=== PATIENT | female | born 1955 | race Caucasian/White ===

== ENCOUNTER 2017-02-05 11:21 | Emergency (ER) | payer MEDICARE ==
[2017-02-05] MEDS ORDERED: PROPOFOL 100 ML IV ONE ×2 (11:41→16:26)
[2017-02-05] MEDS ORDERED: ETOMIDATE INJ/PF 20 MG/10 ML SDV IV ONE (12:02)
--- NOTE | 2017-02-05 12:10 | ER Document Report ---
ED General - General Stated Complaint: SYNCOPE/SEIZURE Time Seen by Provider: 02/05/17 11:45 Notes: Patient is a 63-year-old female who was witnessed to have a seizure this morning. She was standing in the bathroom after taking a shower and suddenly seized and fell backward, hitting her head in the fall. Her witnessed the seizure and fall and called EMS. EMS arrived at the scene and said the patient had another seizure while they were present and then she had several more seizures in route to the hospital. Patient is visiting from out of town, here to go fishing and visit family. 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 She has undergone 30 radiation treatments and now is on chemo alone. Her primary treating physician for the cancer is at [place] and she had studies there including CT scan 2 weeks ago. It did not show any improvement in the brain metastases. However, patient has never had previous seizures. In route here, patient received 8 mg of Versed IV and 5 mg of Valium twice IV. Upon arrival, patient respirations are being assisted with an Ambu bag. - Related Data Allergies/Adverse Reactions: Penicillins Allergy (Verified 02/05/17 13:52) Past Medical History - Social History Smoking Status: Current Every Day Smoker Family History: Reviewed & Not Pertinent - Past Medical History Cardiac Medical History: Reports: Hx Hypertension, Other Pulmonary Medical History: Reports: Hx COPD Neurological Medical History: Denies: Hx Cerebrovascular Accident, Hx Seizures Endocrine Medical History: Denies: Hx Diabetes Mellitus Type 1, Hx Diabetes Mellitus Type 2 Malignancy Medical History: Reports: Hx Lung Cancer - With metastases. Review of Systems - Review of Systems -: Yes ROS unobtainable due to patient's medical condition - Patient unable to answer any questions. Intubated. No relatives here now. Physical Exam - Vital signs Vitals: Pulse Resp BP Pulse Ox 117 H 19 71/61 L 100 02/05/17 11:25 02/05/17 11:25 02/05/17 11:25 02/05/17 11:25 Interpretation: Hypotensive, Tachycardic - Notes Notes: PHYSICAL EXAMINATION: GENERAL: Very thin, frail, small patient, estimated weight about 40 kg. HEAD: Atraumatic, normocephalic. ENT: Moist mucous membranes. NECK: Normal range of motion, supple. LUNGS: Breath sounds clear and equal bilaterally. Decreased bilaterally. HEART: Regular rate and rhythm without murmurs. Slightly tachycardic. Scar from apparent CABG. ABDOMEN: Soft, nontender. No guarding or rebound. BACK: No tenderness throughout entire back. EXTREMITIES: Normal range of motion without pain. Scars from apparent graft donor site of the right thigh. NEUROLOGICAL: Unresponsive and respirations being assisted by Ambu bag by EMS. PSYCH: Unable to assess. SKIN: Warm, dry, no rashes. Course - Re-evaluation Re-evalutation: 02/05/17 15:46 Spoke with after his arrival here and he filled me in on the history that I did not have. Spoke with [place] transfer line and they put me in contact with Dr. Gilmore, who will accept the patient in transfer there. Bed assignment being awaited. Patient was given 4 mg of Decadron IV. She was also started on 1000 mg of Keppra IV for seizure prophylaxis. - Vital Signs Vital signs: Temp Pulse Resp BP Pulse Ox 98.7 F 117 H 13 117/89 H 100 02/05/17 15:33 02/05/17 11:25 02/05/17 15:33 02/05/17 15:33 02/05/17 15:33 - Laboratory Result Diagrams: 02/05/17 12:15 02/05/17 12:15 Laboratory results interpreted by me: 02/05/17 02/05/17 02/05/17 11:30 12:15 12:15 WBC 11.2 H RDW 18.3 H Carbonic Acid 1.78 H ABG pH 7.23 L ABG pCO2 59.3 H ABG pO2 281.4 H ABG Total CO2 26.3 H ABG O2 Saturation 99.5 H Potassium 5.1 H Direct Bilirubin 0.6 H Creatine Kinase 151 H Critical Care Note - Critical Care Note Total time excluding time spent on procedures (mins): 70 Discharge - Discharge Clinical Impression: Seizure, Metastatic cancer to lung Condition: Serious Disposition: [facility]
--- NOTE | 2017-02-05 12:29 | RADIOLOGY REPORT (SQ) ---
EXAM DESCRIPTION: CHEST SINGLE VIEW COMPLETED DATE/TIME: 02/05/2017 12:18 pm REASON FOR STUDY: STROKE ALERT/ET PLACEMENT COMPARISON: 02/05/2017 EXAM PARAMETERS: NUMBER OF VIEWS: One view. TECHNIQUE: Single frontal radiographic view of the chest acquired. RADIATION DOSE: NA LIMITATIONS: None. FINDINGS: LUNGS AND PLEURA: The lungs are hyperexpanded. Chronic interstitial changes seen. The le ft hemidiaphragm is mildly elevated. MEDIASTINUM AND HILAR STRUCTURES: No masses. Contour normal. HEART AND VASCULAR STRUCTURES: Heart normal in size. Normal vasculature. BONES: No acute findings. HARDWARE: An endotracheal tube is present with the tip just above the anayeli. Sternotomy wires. Gra ft markers. Upper mediastinal stents. OTHER: No other significant finding. IMPRESSION: An endotracheal tube is present with the tip just above the anayeli. TECHNICAL DOCUMENTATION: JOB ID: [id number]
--- NOTE | 2017-02-05 12:30 | RADIOLOGY REPORT (SQ) ---
EXAM DESCRIPTION: CHEST SINGLE VIEW COMPLETED DATE/TIME: 02/05/2017 12:18 pm REASON FOR STUDY: bed t1 stroke alert COMPARISON: None. EXAM PARAMETERS: NUMBER OF VIEWS: One view. TECHNIQUE: Single frontal radiographic view of the chest acquired. RADIATION DOSE: NA LIMITATIONS: None. FINDINGS: LUNGS AND PLEURA: Chronic changes are present. No localized infiltrate is seen MEDIASTINUM AND HILAR STRUCTURES: No masses. Contour normal. HEART AND VASCULAR STRUCTURES: Heart normal in size. Normal vasculature. BONES: No acute findings. HARDWARE: An endotracheal tube is present. The tip is right at the origin of the right mainstem bron chus. Sternotomy wires. Graft markers. Upper mediastinal stents. OTHER: No other significant finding. IMPRESSION: Endotracheal tube placement with the tip of the tube just at the origin of the right margaret nstem bronchus. TECHNICAL DOCUMENTATION: JOB ID: [id number]
[2017-02-05 12:31] LABS: ABSOLUTE BASOPHILS # (AUTO) 0.1 10^3/uL (0.0-0.2); ABSOLUTE EOSINOPHILS # (AUTO) 0.4 10^3/uL (0.0-0.6); ABSOLUTE LYMPHOCYTES (AUTO) 1.9 10^3/uL (0.5-4.7); ABSOLUTE MONOCYTES (AUTO) 0.7 10^3/uL (0.1-1.4); ABSOLUTE NEUT (AUTO) 8.2 10^3/uL (1.7-8.2); BASOPHILS % (AUTO) 0.5 % (0-2); EOSINOPHILS % (AUTO) 3.6 % (0-6); HEMATOCRIT 40.2 % (36.0-47.0); HEMOGLOBIN 13.3 g/dL (12.0-15.5); HGB HCT DIFFERENCE -0.3; LYMPHOCYTES % (AUTO) 17.1 % (13-45); MEAN CORPUSCULAR HEMOGLOBIN 30.4 pg (27.0-33.4); MEAN CORPUSCULAR HGB CONC 33.2 g/dL (32.0-36.0); MEAN CORPUSCULAR VOLUME 92 fl (80-97); MONOCYTES % (AUTO) 5.9 % (3-13); PROTHROMBIN TIME 11.8 SEC (11.4-15.4); RED BLOOD COUNT 4.39 10^6/uL (3.72-5.28); RED CELL DISTRIBUTION WIDTH 18.3 % (11.5-14.0); SEGMENTED NEUTROPHILS % (AUTO) 72.9 % (42-78); WHITE BLOOD COUNT 11.2 10^3/uL (4.0-10.5)
[2017-02-05 12:32] LABS: PARTIAL THROMBOPLASTIN TIME 33.3 SEC (23.5-35.8)
[2017-02-05 12:49] LABS: ALANINE AMINOTRANSFERASE 23 U/L (9-52); ALBUMIN 4.4 g/dL (3.5-5.0); ALKALINE PHOSPHATASE 72 U/L (38-126); ANION GAP 12 (5-19); ASPARTATE AMINO TRANSFERASE 31 U/L (14-36); BILIRUBIN,DIRECT 0.6 mg/dL (0.0-0.4); BILIRUBIN,TOTAL 0.7 mg/dL (0.2-1.3); BLOOD UREA NITROGEN 11 mg/dL (7-20); CALCIUM 9.3 mg/dL (8.4-10.2); CARBON DIOXIDE 24 mmol/L (22-30); CHLORIDE 104 mmol/L (98-107); CREATINE KINASE 151 U/L (30-135); CREATININE RESULT 0.86 mg/dL (0.52-1.25); GLUCOSE 99 mg/dL (75-110); POTASSIUM 5.1 mmol/L (3.6-5.0); SODIUM 140.1 mmol/L (137-145); TOTAL PROTEIN 7.4 g/dL (6.3-8.2)
[2017-02-05 13:10] LABS: CREATINE KINASE MB 3.08 ng/mL (<4.55); TROPONIN I 0.024 ng/mL
[2017-02-05 13:12] LABS: ARTERIAL BLOOD O2 SATURATION 99.5 % (94-98)
--- NOTE | 2017-02-05 13:12 | RADIOLOGY REPORT (SQ) ---
EXAM DESCRIPTION: CT HEAD WITHOUT COMPLETED DATE/TIME: 02/05/2017 12:48 pm REASON FOR STUDY: bed t1 stroke alert COMPARISON: None. TECHNIQUE: Axial images acquired through the brain without intravenous contrast. Images reviewed wi th bone, brain and subdural windows. Images stored on PACS. All CT scanners at this facility use dose modulation, iterative reconstruction, and/or weight based d osing when appropriate to reduce radiation dose to as low as reasonably achievable (ALARA). [facility]: Dose Right [facility]: CareDose [facility]: Dose Right [facility]: Teradose 4D [facility]: [employer] RADIATION DOSE: Up-to-date CT equipment and radiation dose reduction techniques were employed. CTDIv ol: 64.0 mGy. DLP: 1163 mGy-cm. mGy. LIMITATIONS: None. FINDINGS: VENTRICLES: Normal size and contour. CEREBRUM: There is considerable decreased attenuation in the white matter tracts on the left. There is questionable loss of cunningham/ white differentiation in the distribution of the left middle cerebral a rtery. By history the patient has a metastatic lesion in the brain, so it is possible that the white matter changes represent vasogenic edema. CEREBELLUM: No masses. No hemorrhage. No alteration of density. No evidence for acute infarction. EXTRAAXIAL SPACES: No fluid collections. No masses. ORBITS AND GLOBE: No intra- or extraconal masses. Normal contour of globe without masses. CALVARIUM: No fracture. PARANASAL SINUSES: No fluid or mucosal thickening. SOFT TISSUES: No mass or hematoma. OTHER: An NG tube and an endotracheal tube were present. IMPRESSION: Apparent white matter edema. The metastatic lesion is not seen and may require contrast visualization. COMMENT: Findings were discussed with Dr. Mann at 1302 hours on this date. TECHNICAL DOCUMENTATION: JOB ID: [id number] Quality ID # [id number]: Final reports with documentation of one or more dose reduction techniques (e.g., Au tomated exposure control, adjustment of the mA and/or kV according to patient size, use of iterative reconstruction technique) 2010 [employer]- All Rights Reserved
--- NOTE | 2017-02-05 13:46 | EKG REPORT ---
SEVERITY:- BORDERLINE ECG - SINUS TACHYCARDIA BORDERLINE T WAVE ABNORMALITIES : Confirmed by: Rashi Donnelly MD 05-Feb-2017 13:45:24
[2017-02-05] MEDS ORDERED: DEXAMETHASONE SOD PHOSPHATE INJ 4 MG/1 ML VIAL IV ONE (15:33)
[2017-02-05] MEDS ORDERED: LEVETIRACETAM 1000 MG/NACL-ISO 1,000 MG/100 ML RTUPB IV ONE (15:38)
[2017-02-05 16:27] VITALS: BP 125/96
== END 2017-02-05 17:16 | disposition short-term general hospital (02) ==
LOC: ER 11:21
DX: R56.9 Unspecified convulsions (principal); C79.31 Secondary malignant neoplasm of brain; C78.00 Secondary malignant neoplasm of unspecified lung; Z79.899 Other long term (current) drug therapy; Z92.3 Personal history of irradiation; F17.200 Nicotine dependence, unspecified, uncomplicated; J44.9 Chronic obstructive pulmonary disease, unspecified; I10 Essential (primary) hypertension; R00.0 Tachycardia, unspecified; I95.9 Hypotension, unspecified; Z88.0 Allergy status to penicillin
CPT/HCPCS: 93005; 99291; 96375; 96365; 36415; 82553; 82962; 82803; 82550; 85025; 85610; 85730; 80053; 84484; 71010; 70450; 93010; 94002; L0172; J1100; J3490; J1953